=== PATIENT | male | born 1955 | race Caucasian/White ===

== ENCOUNTER → 2020-07-17 07:34 | Outpatient (CLI) | payer OTHER, SELFPAY ==
--- NOTE | 2020-07-17 07:40 | MRI_ITS ---
STUDY: MRI CERVICAL SPINE WITHOUT CONTRAST REASON FOR EXAM: Male, 64 years old. Neck pain, vertigo right ear, right ear ache. Symptoms x18 months TECHNIQUE: Standardized fat and water weighted pulse sequences were obtained in the sagittal and axial planes. COMPARISON: None FINDINGS: Patient motion. Normal foramen magnum and brainstem-cervical cord junction. Normal craniovertebral junction. Normal anterior atlantoaxial articulation. Normal odontoid process. Cervical straightening. No significant scoliosis. No abnormal cord signal. Vascular flow voids maintained. No acute fracture. No acute dislocation. No acute bone destruction. Facet joint arthrosis predominating at the upper cervical spine. No spondylolisthesis. C2-3: Normal endplates. Shallow disc bulge. Normal central canal. Moderate right neural foraminal narrowing. Normal left neural foramina. C3-4: Normal endplates. Shallow disc bulge. Normal central canal. Normal neural foramina. C4-5: Minimal endplate spondylosis. Tiny central disc protrusion. No central canal narrowing. Severe right and moderate left neural foraminal narrowing. C5-6: Mild endplate spondylosis. Left foraminal disc/osteophyte complex. Mild central canal narrowing. Severe left neural foraminal narrowing. Normal right neural foraminal narrowing. C6-7: Moderate endplate spondylosis. Disc/osteophyte complex. Normal central canal. Mild/moderate bilateral neural foraminal narrowing, left slightly greater than right. C7-T1: Minimal endplate spondylosis. Shallow disc bulge. Normal central canal. Normal neural foramina. MRI/Spine Cervical (Routine) IMPRESSION: No abnormal cord signal Multilevel intervertebral disc disease with mild central canal narrowing at the C5-6 level Multilevel neural foraminal narrowing most severe at the C2-3, C4-5, C5-6 and C6-7 levels Cervical straightening with moderate osteoarthritis Electronically Signed: Ricardo Olsen DO at 10:14 EDT Tel , Service support ,
== END ==
PROVIDERS: PCP Family Medicine; Referring Provider Family Medicine; Visit Provider Family Medicine
DX: M54.2 Cervicalgia (principal)
CPT/HCPCS: 72141